=== PATIENT | female | born 1975 | race Asian ===

== ENCOUNTER 2021-09-17 09:55 | Outpatient (CLI) | payer OTHER | END 2021-09-17 09:56 | disposition home or self-care (01) | LOC: RAD 09:55 | PROVIDERS: ATTEND Family Medicine | DX: M47.26 Other spondylosis with radiculopathy, lumbar region (principal) | CPT/HCPCS: 72100 ==

== ENCOUNTER 2023-06-30 10:44 | Outpatient (CLI) | payer BC | END 2023-06-30 10:45 | disposition home or self-care (01) | LOC: BICULT 10:44 | PROVIDERS: ATTEND Physician Assistant | DX: N63.10 Unspecified lump in the right breast, unspecified quadrant (principal) ==